=== PATIENT | female | born 1990 | race Caucasian/White ===

== ENCOUNTER 2020-04-23 07:31 | Day surgery (SDC) | payer OTHER ==
[~2020-04-23 07:31] MED LIST: Lactated Ringers 1,000 ML IV SCH; Lidocaine 1%/Sod Bicarbonate in NS 8.4% 1 ML Syringe IDERM PRN; Sodium Chloride 0.9% 10 ML Syringe FLUSH PRN
--- NOTE | 2020-04-23 07:44 | PCM.PREANE ---
Preanesthetic Assessment - Procedure Proposed Procedure: right ulnar nerve neurolysis with anterior transposition- right carpal tunnel release - Anesthesia/Transfusion/Family Hx Anesthesia History: No Prior Anesthesia Family History of Anesthesia Reaction: No Transfusion History: No Prior Transfusion(s) - Review of Systems General: No Symptoms Pulmonary: No Symptoms Cardiovascular: No Symptoms Gastrointestinal: No Symptoms Neurological: No Symptoms Other: Reports: None - Physical Assessment NPO Status Date: 04/22/20 NPO Status Time: 19:00 Height: 5 ft 3 in ASA Class: 3 Mental Status: Alert & Oriented x3 Airway Class: Mallampati = 1 Dentition: Reports: Normal Dentition Thyro-Mental Finger Breadths: 3 Mouth Opening Finger Breadths: 3 ROM/Head Extension: Full Lungs: Clear to Auscultation, Normal Respiratory Effort Cardiovascular: Regular Rate, Regular Rhythm - Allergies Allergies/Adverse Reactions: Allergies Allergy/AdvReac Type Severity Reaction Status Date / Time No Known Allergies Allergy Verified 04/22/20 13:23 - Blood Blood Available: No - Acknowledgements Anesthesia Type Planned: General Anesthesia Pt an Appropriate Candidate for the Planned Anesthesia: Yes Alternatives and Risks of Anesthesia Discussed w Pt/Guardian: Yes Pt/Guardian Understands and Agrees with Anesthesia Plan: Yes PreAnesthesia Questionnaire HEENT History: Reports: Other (See Below) Other HEENT History: fluid behind right tympanic membrane Cardiovascular History: Reports: None Respiratory History: Reports: None Gastrointestinal History: Reports: None Genitourinary History: Reports: None FIELD ARTILLERY OFFICER History: Reports: None Musculoskeletal History: Reports: Other (See Below) Other Musculoskeletal History: hand numbness, tendinitis Neurological History: Reports: None, Neuropathy, Peripheral, Other (See Below) Other Neuro History: neck pain, polyneuropathy Psychiatric History: Reports: None Endocrine/Metabolic History: Reports: Obesity/BMI 30+ Hematologic History: Reports: None Immunologic History: Reports: None Oncologic (Cancer) History: Reports: None Dermatologic History: Reports: Other (See Below) Other Dermatologic History: dog bite - Past Surgical History Head Surgeries/Procedures: Reports: None HEENT Surgical History: Reports: None Cardiovascular Surgical History: Reports: None Respiratory Surgical History: Reports: None GI Surgical History: Reports: None Female Surgical History: Reports: None Male Surgical History: Reports: None Endocrine Surgical History: Reports: None Neurological Surgical History: Reports: None Musculoskeletal Surgical History: Reports: None Oncologic Surgical History: Reports: None Dermatological Surgical History: Reports: None - SUBSTANCE USE Smoking Status *Q: Never Smoker Tobacco Use Within Last Twelve Months: No Second Hand Smoke Exposure: No Days Per Week of Alcohol Use: 1 (rare) Recreational Drug Use History: No - HOME MEDS Home Medications: Home Meds Gabapentin [Neurontin] 300 mg PO TID 04/22/20 [History] - CURRENT (IN HOUSE) MEDS Current Meds: Current Medications Lactated Ringer's (Ringers, Lactated) 1,000 mls @ 125 mls/hr IV ASDIRECTED IRVING Stop: 04/23/20 23:00 Lidocaine/Sodium Bicarbonate (Buffered Lidocaine 1% In Ns 8.4%) 0.25 ml IDERM ONETIME PRN PRN Reason: Prior to IV Start Stop: 04/23/20 18:00 Sodium Chloride (Saline Flush) 10 ml FLUSH ASDIRECTED PRN PRN Reason: Keep Vein Open Stop: 04/23/20 18:00
[2020-04-23] MEDS ORDERED: Lidocaine 1% 4 ML ONE (07:47)
[2020-04-23] MEDS ORDERED: Ondansetron 4 MG/2 ML SDV ONE (07:47)
[2020-04-23] MEDS ORDERED: Midazolam 1 MG/ML 2 ML SDV ONE (07:47)
[2020-04-23] MEDS ORDERED: Propofol 200 MG/20 ML SDV ONE (07:47)
[2020-04-23] MEDS ORDERED: ceFAZolin 1 GM Vial ONE (07:48)
[2020-04-23] MEDS ORDERED: fentaNYL 250 MCG/5 ML SDV ONE (07:48)
[2020-04-23] MEDS ORDERED: Bupivacaine 0.25% 10 ML SDV ONE (08:12)
[2020-04-23] MEDS ORDERED: Ketorolac 30 MG/ML SDV ONE (09:46)
[2020-04-23] MEDS ORDERED: Ondansetron 4 MG/2 ML SDV IVPUSH PRN (09:50)
[2020-04-23] MEDS ORDERED: fentaNYL 100 MCG/2 ML SDV IVPUSH PRN (09:50)
[2020-04-23] MEDS ORDERED: HYDROmorphone 0.5 MG/0.5 ML Syringe IVPUSH PRN (09:50)
[2020-04-23] MEDS ORDERED: HYDROmorphone 0.5 MG/0.5 ML Syringe ONE (10:10)
[2020-04-23] MEDS ORDERED: Dexamethasone 4 MG/ML 5 ML MDV ONE (10:11)
[2020-04-23] MEDS ORDERED: Lactated Ringers 1,000 ML ONE (10:47)
--- NOTE | 2020-04-23 11:52 | PCM.POSTAN ---
POST ANESTHESIA ASSESSMENT - MENTAL STATUS Mental Status: Somnolent - VITAL SIGNS Vital Signs: Last Vital Signs Temp 97.0 F 04/23/20 07:45 Pulse 87 04/23/20 07:45 Resp 16 04/23/20 07:45 BP 143/95 H 04/23/20 07:45 Pulse Ox 94 L 04/23/20 07:45 1142 98 22 97.4 102/77 94% - RESPIRATORY Respiratory Status: Respiratory Rate WNL, Airway Patent, O2 Saturation Stable, Supplemental Oxygen - CARDIOVASCULAR CV Status: Pulse Rate WNL, Blood Pressure Stable - GASTROINTESTINAL GI Status: No Symptoms - POST OP HYDRATION Hydration Status: Adequate & Stable
[2020-04-23] MEDS ORDERED: Acetaminophen 325 MG Tab PO SCH (12:30)
--- NOTE | 2020-04-23 12:41 | PCM48HPAN ---
Post Anesthesia Note - EVALUATION WITHIN 48HRS OF ANESTHETIC Vital Signs in Normal Range: Yes Patient Participated in Evaluation: Yes Respiratory Function Stable: Yes Airway Patent: Yes Cardiovascular Function Stable: Yes Hydration Status Stable: Yes Pain Control Satisfactory: Yes Nausea and Vomiting Control Satisfactory: Yes Mental Status Recovered: Yes Vital Signs: Last Vital Signs Temp 97.3 F 04/23/20 11:42 Pulse 87 04/23/20 07:45 Resp 12 04/23/20 12:15 BP 124/81 04/23/20 12:15 Pulse Ox 92 L 04/23/20 12:15
--- NOTE | 2020-05-04 09:31 | OR ---
DATE OF OPERATION: 04/23/2020 SURGEON: Rickey Longoria MD PREOPERATIVE DIAGNOSIS: 1. Right carpal tunnel syndrome. 2. Right ulnar nerve neuropathy. POSTOPERATIVE DIAGNOSIS: 1. Right carpal tunnel syndrome. 2. Right ulnar nerve neuropathy. OPERATION PERFORMED: 1. Right carpal tunnel release, 75094. 2. Right ulnar nerve neurolysis with anterior transposition, 13017-84. VISION REHABILITATION THERAPIST: Roseline Lui RN. A code 22 modifier should be utilized for billing purposes secondary to the patient's significantly scarred ulnar nerve. This was in dense fibrous tissue, increasing the difficulty and time needed to safely complete the surgical procedure. DESCRIPTION OF PROCEDURE: Ms. Garrido was brought to the operating room and underwent a general anesthetic. Right upper extremity was prepped and draped in a standard orthopedic fashion. A surgical pause was performed identifying the appropriate patient and appropriate extremity to be operated upon. Preoperative antibiotics were given. The right upper extremity was exsanguinated and pneumatic tourniquet was inflated to 250 mmHg. I made a longitudinal incision between the thenar and hypothenar eminence. A sharp dissection was carried out through the skin and subcutaneous tissue. Hemostasis was obtained. We dissected down and divided the palmar facial fibers exposing the transverse carpal ligaments. Utilizing a [place] blade, we opened the ulnar aspects of the transverse carpal ligament. Transverse carpal ligament was released down to the superficial palmar arch. We turned our attention proximally and released the transverse carpal ligament up to the antebrachial fascia. The antebrachial fascia was then released several centimeters proximal to the wrist flexion crease. Contents of the carpal tunnel were evaluated. Again, she did have fusiform compression of the nerve at the junction between the transverse carpal ligament and antebrachial fascia. The wounds were thoroughly irrigated. The skin was closed with 5-0 nylon. We turned our attention to her elbow. We made a curvilinear incision across the posterior medial aspect of the elbow. Sharp dissection was carried out through the skin and subcutaneous tissue. Hemostasis was obtained. We dissected down a fairly deep subcutaneous fatty layer. We dissected down the medial epicondyle. Her nerve, we identified proximal and posterior to the triceps fascia. The nerve itself was densely adherent to the muscle curiously. We carefully released the nerve all the way down to the medial epicondyle. We then released the nerve behind the medial epicondyle down to the FCU tendon bellies. We then started proximally again, performed neurolysis, releasing the nerve, again from proximal to distal. Again, this was densely adherent, particularly again proximally as well as at the level of the medial epicondyle. We released the nerve down and identified the first and second motor branches to the FCU. We then mobilized the nerve, the nerve was transposed anteriorly. We fashioned a fascial flap and sutured this to the subcutaneous tissue transposing the nerve nicely. The flexion and extension showed nice motion of the nerve, and it had a nice soft contour as it crossed the flexor pronator mass. There was one fascial fiber, a little hypertrophic tendon which we did release to take the tension off the small area. The wounds were irrigated, the subcutaneous tissues were closed with Monocryl, skin in a standard fashion. She was brought to recovery in satisfactory condition. ANESTHESIA: ESTIMATED BLOOD LOSS: MMODAL /[id number]
== END 2020-04-23 13:17 | disposition home or self-care (01) ==
LOC: JD.SDS 07:31
PROVIDERS: ATTEND Orthopaedic Surgery
DX: G56.01 Carpal tunnel syndrome, right upper limb (principal); G56.21 Lesion of ulnar nerve, right upper limb; Z01.812 Encounter for preprocedural laboratory examination; Z20.828 Contact with and (suspected) exposure to other viral communicable diseases; G62.9 Polyneuropathy, unspecified; E66.9 Obesity, unspecified; Z68.41 Body mass index [BMI] 40.0-44.9, adult
CPT/HCPCS: 36415; 64718; 64721; 84703; 87635; 87641; A9270; J0690; J1100; J1170; J1885; J2001; J2250; J2405; J2704; J3010; J3490; J7120; 01810; U0002